=== PATIENT | female | born 1945 | race Caucasian/White ===

== ENCOUNTER → 2016-10-20 | Day surgery (SDC) | payer MEDICARE ==
[~2016-10-20] MED LIST: Acetaminophen TAB* 325 MG PO PRN; Buffered Lidocaine 1% SYR 3ML* 3 ML/SYR SYRINGE INTRADERM ONE; Buffered Lidocaine 1% SYR 3ML* 3 ML/SYR SYRINGE ONE; Cyclopentolate 1% OPTH.SOL* 2 ML BTL ONE; Flurbiprofen 0.03% OPTH.SOL* 2.5 ML BTL ONE; Lidocaine 1% MPF* 2 ML VIAL ONE; Lidocaine 2% PF * 5 ML VIAL ONE; Neomycin/Polymy/Dex OPHTH.OIN* 3.5 GM ONE; Phenylephrine 2.5% OPTH.SOL* 2 ML BTL ONE; Propofol* 10 MG/ML 20 ML BTL IV PUSH ONE; Tetracaine 0.5% OPTH.SOL 4 ML* 1 DROP BTL ONE; Tropicamide 1% OPTH.SOL* BTL ONE; fentaNYL* 50 MCG/ML 2 ML VIAL (100 MCG VIAL) ONE
[2016-10-20 09:29] VITALS: BP 127/57
--- NOTE | 2016-10-20 09:58 | OP ---
DATE OF OPERATION/DATE OF DICTATION: 10/20/2016 - [facility] DATE OF : 1945. SURGEON: Dr. Jean Wayne. RIGGING WORKER: None. ANESTHESIA: Topical with intravenous sedation. PRE-OP DIAGNOSIS: Cataract, right eye. POST-OP DIAGNOSIS: Cataract, right eye. OPERATIVE PROCEDURE: Phacoemulsification and cataract extraction with posterior chamber intraocular lens implant, right eye. COMPLICATIONS: None. BLOOD LOSS: None. DESCRIPTION OF PROCEDURE: The patient was brought to the operating room and received a small amount of intra-venous sedation. A drop of Tetracaine was placed in her right eye. She was prepped and draped in the usual sterile fashion for ophthalmic surgery and attention was directed to the right eye where a speculum was placed. A paracentesis was created at the 11 o'clock position and 0.1 cc of 1 percent preservative-free Lidocaine was injected into the anterior chamber followed by DisCoVisc. The eye was digitally stabilized while a 2.75 mm keratome was used to create a triplanar clear corneal incision at the 9 o'clock position. A continuous curvilinear capsulorrhexis was created with a cystotome and Utrata forceps. BSS on a cannula was used to hydrodissect the lens from the capsule. Phacoemulsification was performed in a divide-and- conquer technique to create four fragments which were removed. Residual cortical material was removed with irrigation and aspiration. DisCoVisc was used to inflate the capsular bag and an SN60AT 19.0 diopter lens was folded and inserted into the capsular bag. DisCoVisc was removed using irrigation and aspiration. BSS on a cannula was used to hydrate the corneal stroma and seal the wound. At the end of the case the pupil was round and the lens was centered. The eye was of normal pressure and the wound was water tight. The speculum was removed and topical Maxitrol ointment was placed on the surface of the eye. The eye was closed, patched and shielded and the patient was sent to the recovery room in stable condition with post operative instructions and follow-up appointment given. [id number] #: [id number] MTDD
== END | disposition home or self-care (01) ==
LOC: OREAST 07:38
PROVIDERS: ATTEND Ophthalmology
DX: H25.11 Age-related nuclear cataract, right eye (principal); I73.00 Raynaud's syndrome without gangrene
CPT/HCPCS: A9270-GY; J2704; J3010; V2632

== ENCOUNTER → 2016-10-27 | Day surgery (SDC) | payer MEDICARE ==
[~2016-10-27] MED LIST changes: -Lidocaine 2% PF * 5 ML VIAL ONE; +Midazolam* 1 MG/ML 2 ML VIAL (2 MG) ONE; -Propofol* 10 MG/ML 20 ML BTL IV PUSH ONE
[2016-10-27 10:15] VITALS: BP 125/77
--- NOTE | 2016-10-27 21:06 | OP ---
DATE OF OPERATION/DATE OF DICTATION: 10/27/16 - [facility] DATE OF : 47 SURGEON: Dr. Jean Wayne. ELEMENTARY INSTRUCTIONAL COACH: None. ANESTHESIOLOGIST: Beni Johnson MD ANESTHESIA: Topical with intravenous sedation. PRE-OP DIAGNOSIS: Cataract, left eye. POST-OP DIAGNOSIS: Cataract, left eye. OPERATIVE PROCEDURE: Phacoemulsification and cataract extraction with posterior chamber intraocular lens implant, left eye. COMPLICATIONS: None. BLOOD LOSS: None. DESCRIPTION OF PROCEDURE: The patient was brought to the operating room and received a small amount of intravenous sedation. A drop of Tetracaine was placed in Ashli's left eye. Ashli was prepped and draped in the usual sterile fashion for ophthalmic surgery and attention was directed to the left eye where a speculum was placed. A paracentesis was created at the 5 o'clock position and 0.1 cc of 1 percent preservative-free Lidocaine was injected into the anterior chamber followed by DisCoVisc. The eye was digitally stabilized while a 2.75 mm keratome was used to create a triplanar clear corneal incision at the 3 o'clock position. A continuous curvilinear capsulorrhexis was created with a cystotome and Utrata forceps. BSS on a cannula was used to hydrodissect the lens from the capsule. Phaco-emulsification was performed in a divide-and- conquer technique to create four fragments which were removed. Residual cortical material was removed with irrigation and aspiration. DisCoVisc was used to inflate the capsular bag and an SN60AT 18 diopter lens was folded and inserted into the capsular bag. DisCoVisc was removed using irrigation and aspiration. BSS on a cannula was used to hydrate the corneal stroma and seal the wound. At the end of the case the pupil was round and the lens was centered. The eye was of normal pressure and the wound was water tight. The speculum was removed and topical Maxitrol ointment was placed on the surface of the eye. The eye was closed, patched and shielded and the patient was sent to the recovery room in stable condition with post operative instructions and follow-up appointment given. [id number] #: [id number] MTDD
== END | disposition home or self-care (01) ==
LOC: OREAST 08:30
PROVIDERS: ATTEND Ophthalmology
DX: H25.12 Age-related nuclear cataract, left eye (principal); D64.9 Anemia, unspecified
CPT/HCPCS: A9270-GY; J2250; J3010; V2632

== ENCOUNTER 2017-04-07 11:46 | Emergency (ER) | payer MEDICARE ==
[2017-04-07 12:09] VITALS: BP 119/59
--- NOTE | 2017-04-07 12:11 | UC ---
Abdominal Pain Female HPI - HPI Summary HPI Summary: 72 YEAR OLD FEMALE PRESENTS WITH COMPLAINS OF FEVER, CHILLS, DIARRHEA AND ABDOMINAL PAIN. - History of Current Complaint Chief Complaint: UCGI Stated Complaint: ABDOMINAL COMPLAINT Time Seen by Provider: 04/07/17 12:08 Allergies/Adverse Reactions: Allergies Allergy/AdvReac Type Severity Reaction Status Date / Time No Known Drug Allergy Allergy none Verified 04/07/17 12:09 adhesives Allergy Intermediate redness, Uncoded 04/07/17 12:09 irritation to skin, itchy PMH/Surg Hx/FS Hx/Imm Hx - Surgical History Surgical History: Yes Surgery Procedure, Year, and Place: hysterectomy, cataract - Social History Alcohol Use: Occasionally Substance Use Type: None Smoking Status (MU): Never Smoked Tobacco Review of Systems Constitutional: Fever, Chills Skin: Negative Eyes: Negative ENT: Negative Respiratory: Negative Cardiovascular: Negative Gastrointestinal: Abdominal Pain, Diarrhea Genitourinary: Negative Motor: Negative Neurovascular: Negative Musculoskeletal: Negative Neurological: Negative Psychological: Negative All Other Systems Reviewed And Are Negative: Yes Physical Exam Triage Information Reviewed: Yes Vital Signs: Initial Vital Signs Temp 36.3 C 04/07/17 12:04 Pulse 68 04/07/17 12:04 Resp 18 04/07/17 12:04 BP 119/59 04/07/17 12:04 Pulse Ox 100 04/07/17 12:04 Eye Exam: Normal ENT Exam: Normal Dental Exam: Normal Neck exam: Normal Neck: Positive: 1 Respiratory Exam: Normal Cardiovascular Exam: Normal Abdominal Exam: Normal Musculoskeletal Exam: Normal Neurological Exam: Normal Psychological Exam: Normal Skin Exam: Normal Abd Pain Female Course/Dx - Differential Dx/Diagnosis Provider Diagnoses: DIARRHEA Discharge - Discharge Plan Condition: Stable Disposition: HOME Patient Education Materials: Acute Diarrhea (ED), Colitis (ED) Referrals: Seb Grey MD [Primary Care Provider] - If Needed
== END 2017-04-07 12:35 | disposition home or self-care (01) ==
LOC: UCEAST 11:46
DX: R19.7 Diarrhea, unspecified (principal); R50.9 Fever, unspecified; R10.9 Unspecified abdominal pain; Z90.710 Acquired absence of both cervix and uterus; Z98.49 Cataract extraction status, unspecified eye
CPT/HCPCS: 99212; G0463

== ENCOUNTER 2018-09-06 16:45 | Inpatient (IN) | payer MEDICARE ==
[2018-09-06] MEDS ORDERED: Morphine VIAL* 4 MG/ML VIAL (1 ml vial) IV ONE ×2 (16:59→17:31)
[2018-09-06] MEDS ORDERED: Ondansetron INJ* 2 MG/ML VIAL IV ONE (17:00)
--- NOTE | 2018-09-06 17:02 | ED ---
Lower Extremity - HPI Summary HPI Summary: 73 year old female with history of hypothyroidism presents with obvious deformity to left ankle. She states that she tripped over the dog. She denies any head injury or loss consciousness. No chest pain or shortness of breath. fall was a mechanical fall. No neck pain. No hip pain. She says she has feels like has pulled muscle of left thigh. She denies any previous fractures to the area. No numbness or tingling. She is not able to placing weight on the area. lives at home alone. - History of Current Complaint Chief Complaint: EDExtremityLower Stated Complaint: LT ANKLE PAIN Time Seen by Provider: 09/06/18 16:55 Pain Intensity: 7 - Allergies/Home Medications Allergies/Adverse Reactions: Allergies Allergy/AdvReac Type Severity Reaction Status Date / Time MS No Known Drug Allergy Allergy none Verified 04/07/17 12:09 [No Known Drug Allergy] adhesives Allergy Intermediate redness, Uncoded 04/07/17 12:09 irritation to skin, itchy Home Medications: Home Medications Levothyroxine TAB* [Synthroid TAB*] 50 mcg PO DAILY 09/06/18 [History Confirmed 09/06/18] PMH/Surg Hx/FS Hx/Imm Hx Endocrine/Hematology History: Reports: Hx Anemia - on and off from childhood Denies: Hx Diabetes, Hx Thyroid Disease Cardiovascular History: Denies: Hx Hypertension Respiratory History: Denies: Hx Asthma, Hx Chronic Obstructive Pulmonary Disease (COPD) GI History: Reports: Hx Gastroesophageal Reflux Disease - controlled with diet, Hx Hiatal Hernia - tiny one Denies: Hx Ulcer Musculoskeletal History: Reports: Hx Arthritis - bilat feet, right worse than feet, 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, Hx Osteoporosis, Other Musculoskeletal History - osteopenia in hip Sensory History: Reports: Hx Cataracts - pending surgery, Hx Contacts or Glasses - glasses Denies: Hx Hearing Aid Opthamlomology History: Reports: Hx Cataracts - pending surgery, Hx Contacts or Glasses - glasses Psychiatric History: Reports: Hx Depression - off meds, doing better - Cancer History Hx Chemotherapy: No Hx Radiation Therapy: No - Surgical History Surgery Procedure, Year, and Place: hysterectomy, cataract Hx Anesthesia Reactions: No Infectious Disease History: No Infectious Disease History: Denies: Hx Clostridium Difficile, Hx Hepatitis, Hx Human Immunodeficiency Virus (HIV), Hx of Known/Suspected MRSA, Hx Shingles, Hx Tuberculosis, Hx Known/ Suspected VRE, Hx Known/Suspected VRSA, History Other Infectious Disease, Traveled Outside the [place] in Last 30 Days - Social History Alcohol Use: Occasionally Substance Use Type: Reports: None Smoking Status (MU): Never Smoked Tobacco Review of Systems Negative: Fever Negative: Chest Pain Negative: Shortness Of Breath Positive: Myalgia - left ankle pain All Other Systems Reviewed And Are Negative: Yes Physical Exam Triage Information Reviewed: Yes Vital Signs On Initial Exam: Initial Vitals Temp Pulse Resp BP Pulse Ox 98.1 F 67 15 193/102 98 09/06/18 16:48 09/06/18 16:48 09/06/18 16:48 09/06/18 16:48 09/06/18 16:48 Vital Signs Reviewed: Yes Appearance: Positive: Well-Appearing Skin: Positive: Warm, Dry Head/Face: Positive: Normal Head/Face Inspection Eyes: Positive: Normal, Conjunctiva Clear ENT: Positive: Pharynx normal Respiratory/Lung Sounds: Positive: Clear to Auscultation, Breath Sounds Present Cardiovascular: Positive: Normal, RRR Musculoskeletal: Positive: Other - deformity to left ankle, good pulses, able to wiggle toes, sensation grossly intact Neurological: Positive: Normal Psychiatric: Positive: Normal Procedures - Splinting left leg Location: left leg Hand-Made Type: fiberglass Splint: posterior walking Pre-Proc Neuro Vasc Exam: normal Post-Proc Neuro Vasc Exam: normal Diagnostics - Vital Signs Vital Signs Temp Pulse Resp BP Pulse Ox 09/06/18 16:48 98.1 F 67 15 193/102 98 - Laboratory Result Diagrams: 09/06/18 18:06 09/06/18 18:06 Lab Statement: Any lab studies that have been ordered have been reviewed, and results considered in the medical decision making process. - Radiology leg Radiology Interpretation Completed By: Radiologist Summary of Radiographic Findings: IMPRESSION: TRIMALLEOLAR FRACTURE DISLOCATION OF THE ANKLE. - EKG No standard instances Cardiac Rate: NL EKG Rhythm: Sinus Rhythm Summary of EKG Findings: sinus arrhythmia Lower Extremity Course/Dx - Course Course Of Treatment: 73 year old female with history of hypothyroidism presents with obvious deformity to left ankle. She states that she tripped over the dog. She denies any head injury or loss consciousness. No chest pain or shortness of breath. fall was a mechanical fall. No neck pain. No hip pain. She says she has feels like has pulled muscle of left thigh. She denies any previous fractures to the area. No numbness or tingling. She is not able to placing weight on the area. On exam has obvious deformity to left ankle. Neurovascularly intact. X-ray shows trimalleolar fracture. dr gonzalez wanted to reduce in ED but patient has history of prolonged anasethesia so dr nair wants case to be done by anasethesia. no bed in OR so performed reduction and splinting bedside. dr Gonzalez performed reduction. assisted in placing posterior and sugar tong splint. patient will be admitted to hospitalist to be cleared for surgery. - Diagnoses Differential Diagnosis/HQI/PQRI: Positive: Contusion, Fracture (Closed), Sprain Provider Diagnoses: Trimalleolar fracture of left ankle Discharge - Sign-Out/Discharge Documenting (check all that apply): Patient Departure - Discharge Plan Condition: Good Disposition: ADMITTED TO [facility] Patient Education Materials: Procedural Sedation (ED) Referrals: Seb Grey MD [Primary Care Provider] - - Billing Disposition and Condition Condition: GOOD Disposition: Admitted to [facility]
[2018-09-06] MEDS ORDERED: KETAMINE HCL* 50 MG/ML 10 ML VIAL IV ONE (18:08)
[2018-09-06 18:13] LABS: ABS Basophils 0 10^3/ul (0-0.2); ABS Eosinophils 0 10^3/ul (0-0.6); ABS Lymphocytes 1.2 10^3/ul (1.0-4.8); ABS Monocytes 0.4 10^3/ul (0-0.8); ABS Neutrophils 3.8 10^3/ul (1.5-7.7); ABS Nucleated RBC 0 10^3/ul; Eosinophil % 0.7 %; Hematocrit 42 % (35-47); Hemoglobin 13.9 g/dl (12.0-16.0); Lymphocyte % 21.5 %; Mean Corpuscular HGB Conc 33 g/dl (31-36); Mean Corpuscular Hemoglobin 30 pg (27-31); Mean Corpuscular Volume 91 fL (80-97); Nucleated Red Blood Cells % 0; Platelet Count 224 10^3/ul (150-450); Red Cell Distribution Width 13 % (10.5-15); White Blood Count 5.4 10^3/ul (3.5-10.8)
[2018-09-06 18:22] LABS: INR 0.9 (0.77-1.02)
--- NOTE | 2018-09-06 18:27 | ED ---
Progress - Progress Note Progress Note: Procedure Sedation Assessment Pt is a higher risk because of previous anesthesia history with prolonged recovery. Operating rooms are unavailable for several hours, anesthesiologists unavailable, and Dr. Malin is concerned about skin integrity and that bone will avulse and that there will be skin necrosis. Will proceed with Ketamine dissociative sedation. Presedation physical exam: HEENT, neck, chest, pulmonary, cardiovascular all within normal limits. Given the emergent need for sedation and emergent reduction of potential loss of limb related to delay, we elected for emergent dissociative sedation for this patient. We could not wait for the operating room or for anesthesiology. Sedation provider: Elías Varela M.D. next Consent: In the procedure/sedation consent obtained by Dr. Malin details: Verify that there were no other contraindications to sedation including allergy or anaphylaxis to anesthetic agents, sleep apnea history, dental appliances. Respiratory therapy was present for the entire sedation period emergency airway equipment was immediately available including suctioning and airway cart. We utilized end-tidal capnography (waveform). 2 L of oxygen was applied via nasal cannula. I monitored the patient throughout the entire sedation, and Anel continued to recover her after she was able to verbalize. She did require a couple of sternal rubs at some points for hypoventilation. this was immediately following the reduction. She tolerated the sedation well. Course/Dx - Diagnoses Provider Diagnoses: Trimalleolar fracture of left ankle Discharge - Sign-Out/Discharge Documenting (check all that apply): Patient Departure - Discharge Plan Condition: Good Disposition: ADMITTED TO [facility] Patient Education Materials: Procedural Sedation (ED) Referrals: Seb Grey MD [Primary Care Provider] - - Billing Disposition and Condition Condition: GOOD Disposition: Admitted to [facility] - Attestation Statements Document Initiated by Scribe: Yes Documenting Scribe: Betsy Dwyer Provider For Whom Udayibjonathan is Documenting (Include Credential): Elías Varela MD Scribe Attestation: Betsy Nuñez scribed for Elías Varela MD on 09/06/18 at 1900. Scribe Documentation Reviewed: Yes Provider Attestation: The documentation as recorded by the Betsy liang accurately reflects the service I personally performed and the decisions made by , Elías Varela MD Status of Scribe Document: Viewed
[2018-09-06] MEDS ORDERED: Albuterol/Ipratropium NEB.SOL* Albuterol 2.5 MG/Ipratropium 0.5 MG 3 ML INH PRN (19:32)
[2018-09-06] MEDS ORDERED: Ondansetron INJ* 2 MG/ML VIAL IV PRN (19:32)
[2018-09-06] MEDS ORDERED: Acetaminophen TAB* 325 MG PO PRN (19:32)
--- NOTE | 2018-09-06 19:56 | ADMNOTE ---
Subjective Date of Service: 09/06/18 Interval History: code status full this is admission h/p hpi this is a 73 yr old wf with hx of possible osteoporosis presented to er after an accident that she landed on the floor and twisted her ankle. pt was walking her dog and saw her neighbor's dog was rushing over the fence. she was trying to avoid possible knock-down by that dog and was not sure how she fell in a spilt second. pt did not have and prodrome of any chest pain sob or other cardiac equivalent symptoms. pt had cast placed from er on her left ankle while await for ortho official eval in am. 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 ( all benign pathology ) prob vit d def osteoporosis after ammonia still operator surgery was on estrogen therapy from [id number] was on fosamax 7 months ---> pt decided not to take this due to " keep forgetting to take the med on weekend " hx of hypoglossal cyst removal 1985 hx of b/l cataract extraction 2 yrs ago s/p basal cell skin ca excision 2010 social no cig will consume 4-5 drinks per week 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 Review of Systems - Measurements Intake and Output: Intake and Output Last 24 Hours 09/04/18 09/05/18 09/06/18 09/07/18 06:59 06:59 06:59 06:59 Weight 145 lb - Review of Systems General Comments: pertinent as per hpi Objective Active Medications: Acetaminophen (Tylenol Tab*) 650 mg PO Q6H PRN PRN Reason: FEVER/PAIN Albuterol/Ipratropium (Duoneb (Albuterol 2.5 Mg/Ipratropium 0.5 Mg)) 1 neb INH [id number] AWAKE PRN PRN Reason: sob/wheexing Docusate Sodium (Colace Cap*) 100 mg PO BID BIANKA Heparin Sodium (Porcine) (Heparin Vial(*)) 5,000 units SUBCUT Q8HR BIANKA Sodium Chloride (Ns 0.9% 1000 Ml*) 1,000 mls @ 100 mls/hr IV PER RATE BIANKA Ondansetron HCl (Zofran Inj*) 4 mg IV Q8H PRN PRN Reason: NAUSEA/VOMITING Tramadol HCl (Ultram*) 25 mg PO Q6H PRN PRN Reason: PAIN Vital Signs - 8 hr 09/06/18 09/06/18 09/06/18 16:48 16:51 17:00 Temperature 98.1 F Pulse Rate 67 63 70 Respiratory 15 16 14 Rate Blood Pressure 193/102 193/102 (mmHg) O2 Sat by Pulse 98 100 98 Oximetry 09/06/18 09/06/18 09/06/18 17:06 17:21 17:37 Temperature Pulse Rate 70 Respiratory 15 13 16 Rate Blood Pressure 179/92 (mmHg) O2 Sat by Pulse 97 Oximetry 09/06/18 09/06/18 09/06/18 17:51 18:00 18:21 Temperature Pulse Rate 74 76 77 Respiratory Rate Blood Pressure 179/87 187/88 (mmHg) O2 Sat by Pulse 95 95 100 Oximetry 09/06/18 09/06/18 09/06/18 18:27 18:30 18:33 Temperature Pulse Rate 119 119 104 Respiratory 24 Rate Blood Pressure 223/115 212/100 (mmHg) O2 Sat by Pulse 93 93 93 Oximetry 09/06/18 09/06/18 18:36 18:41 Temperature Pulse Rate 103 88 Respiratory Rate Blood Pressure 193/98 189/101 (mmHg) O2 Sat by Pulse 98 99 Oximetry Result Diagrams: 09/06/18 18:06 09/06/18 18:06 Assess/Plan/Problems-Billing Assessment:
--- NOTE | 2018-09-06 21:18 | CONS ---
EMERGENCY ROOM CONSULTATION REPORT: DATE OF CONSULTATION: 09/06/18 CHIEF COMPLAINT: Left ankle pain. HISTORY OF PRESENT ILLNESS: Mrs. Gayle is a 73-year-old female who was nearly attacked by a dog while at walking her dog earlier today. She reports she is unsure how she fell, but immediately had 10/10 pain and deformity of the left ankle. She was unable to stand or move the ankle. She was brought to [facility] by an ambulance and found to have fracture dislocation of the left ankle. I am consulted for orthopedic fracture care as the emergency room staff is uncomfortable with the reduction. The patient reports 8/10 pain in the left ankle. Any attempt to move the ankle is excruciating for her. She denies any prior trauma to this ankle. PAST MEDICAL HISTORY: Hypothyroidism. PAST SURGICAL HISTORY: Oophorectomy and hysterectomy, thyroglossal cyst excision. HOME MEDICATIONS: Synthroid 50 mcg p.o. daily. ALLERGIES: ADHESIVES, redness of the skin, otherwise unknown or negative. FAMILY HISTORY: Negative. SOCIAL HISTORY: The patient lives alone. Occasional alcohol use. No tobacco use. Normally, an independent ambulator. REVIEW OF SYSTEMS: Fourteen systems were reviewed with the patient today, positive for the left ankle pain, recent fall. Negative fever, chills, chest pain, shortness of breath, nausea, vomiting, headache or dizziness. Otherwise, the patient reports review of systems is negative or non-relevant. PHYSICAL EXAMINATION: Vitals: Temperature 98.1, pulse 67, blood pressure 193/ 102. General: The patient is a well-nourished female, in no apparent distress. Alert and oriented x3, pleasant mood and appropriate affect. Gait: The patient's gait is not assessed. Bilateral Upper Extremities: The patient's skin is intact. No bony tenderness to palpation. Forward flexion at the shoulders with no instability. 5/5 structured cabling technician strength. 2+ palpable radial pulses. Right lower extremity: The patient's skin is intact. No bony tenderness to palpation. She can flex at the hip and knee without pain distally, neurovascularly intact. Left lower extremity: The patient's skin is intact. She has obvious deformity with fracture dislocation at the left ankle. The bone is visible through the medial skin and the skin is at risk. This skin is changing color. Effusion is increasing rapidly. She does flex and extend the toe. She has a 2+ palpable DP pulse. DIAGNOSTIC STUDIES/LAB DATA: Hematocrit 42 and platelets 224, otherwise I have no labs at this time. EKG is abnormal with a sinus arrhythmia. Radiographs: Plain x-rays show a trimalleolar fracture dislocation with significant displacement of the left ankle. ASSESSMENT AND PLAN: Mrs. Gayle is a 73-year-old female, status post fall with a left closed fracture dislocation of the left ankle. This is likely a trimalleolar fracture. The emergency room staff was uncomfortable with the reduction, therefore, I was called to see her in the emergency room. Although the patient does have an anesthesia history that makes the emergency room less comfortable with the sedation process, we have no available operating room. I have asked Dr. Varela to proceed with any kind of sedation because I do feel that this skin is at risk. I feel that an urgent reduction of this fracture dislocation is necessary in order to avoid any skin breakdown. Dr. Varela has graciously agreed to perform a conscious sedation in the emergency room, so I can reduce this fracture dislocation. Plan will be for closed reduction under anesthesia. I will then get a CT scan. The patient lives alone. She will likely be admitted to the hospitalist. She will be medically optimized then perhaps further cardiac workup because of abnormal EKG. Once she is cleared for surgery, Orthopedics will proceed with open reduction and internal fixation. [id number]/[facility] #: [id number] MTDD
[2018-09-06] MEDS: NS 0.9% 1000 ML* 1,000 ML IV SCH (21:19)
[2018-09-06 22:05] LABS: Urine Appearance Cloudy; Urine Blood Negative (Negative); Urine Color Yellow; Urine Ketones Negative (Negative); Urine Protein Negative (Negative); Urine Specific Gravity 1.014 (1.010-1.030); Urine Urobilinogen Negative (Negative)
[2018-09-06] MEDS: Docusate CAP* 100 MG PO SCH (22:24)
[2018-09-06] MEDS: Heparin VIAL(*) 5000 UNITS/ML VIAL (FIVE THOUSAND) SUBCUT SCH (22:26)
[2018-09-06] MEDS ORDERED: Melatonin 3 MG TAB PO PRN (23:09)
--- NOTE | 2018-09-07 00:05 | PRO ---
DATE OF PROCEDURE: 09/06/18 - ROOM #347 ATTENDING SURGEON: Lora Malin MD ANESTHESIOLOGIST: Dr. Elías Varela. ANESTHESIA: Conscious sedation to include ketamine. PRE-PROCEDURE DIAGNOSIS: Closed left ankle trimalleolar fracture dislocation. POST-PROCEDURE DIAGNOSIS: Closed left ankle trimalleolar fracture dislocation. PROCEDURE PERFORMED: Closed reduction under anesthesia of the left ankle trimalleolar fracture dislocation. COMPLICATIONS: None. BRIEF HISTORY/INDICATIONS: Ms. Gayle is a 73-year-old female who had a fall and sustained a left closed trimalleolar ankle fracture dislocation. She was brought to [facility] and I was consulted for fracture reduction. In the emergency room, she had skin at risk medially with bone that was giving a large amount of pressure along the medial skin. I felt that we should urgently reduce the fracture dislocation, and emergency room staff agreed to help me proceed. Informed consent was obtained from the patient. This was signed and placed in the chart. She understood the risks of the procedure included, but were not limited to, bleeding, infection, damage to nearby structures, failure to obtain a reduction, need for further procedure or surgery, anesthesia risk, stroke, heart attack, blood clot, and . She wished to proceed. DESCRIPTION OF PROCEDURE: The patient signed the consent form and the risks were discussed with her at the bedside. Consent was placed in the chart. A pre - procedure time-out was made to correctly identify the patient's side, site, and procedure. Dr. Varela did administer IV ketamine. A gentle reduction maneuver was performed and the fracture dislocation alignment was much improved. A well-padded posterior U-plaster splint was then applied while I held the reduction in place. AP and lateral portable views were obtained to ensure a satisfactory reduction. A satisfactory reduction had been obtained and was documented. The patient's anesthesia was reversed without difficulty. Plan will be for the patient to be admitted to the hospitalist group and medically optimized for further surgery to fix the ankle trimalleolar fracture. She should have the left lower extremity elevated with ice. [id number]/CPS #: [id number] [facility]
[2018-09-07] MEDS: Heparin VIAL(*) 5000 UNITS/ML VIAL (FIVE THOUSAND) SUBCUT SCH ×3 (06:03→23:50)
[2018-09-07 06:53] LABS: ABS Basophils 0 10^3/ul (0-0.2); ABS Eosinophils 0.1 10^3/ul (0-0.6); ABS Lymphocytes 1.7 10^3/ul (1.0-4.8); ABS Monocytes 0.4 10^3/ul (0-0.8); ABS Neutrophils 2.9 10^3/ul (1.5-7.7); ABS Nucleated RBC 0 10^3/ul; Hematocrit 35 % (35-47); Hemoglobin 11.8 g/dl (12.0-16.0); Lymphocyte % 32.9 %; Mean Corpuscular HGB Conc 34 g/dl (31-36); Mean Corpuscular Hemoglobin 30 pg (27-31); Mean Corpuscular Volume 90 fL (80-97); Mean Platelet Volume 9.2 fL (7.4-10.4); Nucleated Red Blood Cells % 0.1; Platelet Count 187 10^3/ul (150-450); Red Blood Count 3.91 10^6/ul (4.00-5.40); Red Cell Distribution Width 13 % (10.5-15); White Blood Count 5.1 10^3/ul (3.5-10.8)
[2018-09-07 07:06] LABS: INR 0.96 (0.77-1.02)
[2018-09-07 07:21] LABS: EGFR Non-African American 94.6 (>60)
[2018-09-07] MEDS: Docusate CAP* 100 MG PO SCH ×2 (07:45→20:40)
[2018-09-07] MEDS: NS 0.9% 1000 ML* 1,000 ML IV SCH (07:53)
[2018-09-07] MEDS: Famotidine IV* 10 MG/ML 2 ML (20 mg) IVPB PRN (09:07)
[2018-09-07] MEDS: traMADol TAB* 50 MG PO PRN ×2 (11:03→18:35)
--- NOTE | 2018-09-07 13:07 | PN ---
Progress Note - Progress Note Date of Service: 09/07/18 SOAP: Subjective: [] Patient seen and examined at bedside. She is anxious as she has been unable to contact her family or secure care for her dog due to fall outside of her home without her cellphone. Left ankle pain is well controlled at rest in bed. Denies CP, SOB, dizziness, nausea. Objective: []General: Well appearing, NAD LLE: Left ankle splint CDI. Able to wiggle exposed toes, sensation intact and capillary refill less than two seconds of exposed toes. Proximal to splint there is no erythema or skin breakdown at splint edges. Right calf supple and nontender Assessment: [] Left ankle triamalolar fracture s/p closed reduction, requires ORIF Plan: [] NWB LLE LLE to be elevated on 4 pillows, ice Nursing aware of and working to assist in needs, social work consult placed, needs assistance contacting family/ care for pets. Anticipate need for rehab at D/C NPO and hold anticoag at midnight for ORIF left ankle tomorrow at approx [address] Tello Medical optimization today. Repeat EKG ordered cbc, bmp, inr at 0600 09/08. Type and screen done at admission Vital Signs Temp 98.2 F 09/07/18 11:17 Pulse 67 09/07/18 11:17 Resp 16 09/07/18 11:17 BP 156/81 09/07/18 11:17 Pulse Ox 94 09/07/18 11:17 Intake & Output 09/06/18 09/07/18 09/07/18 18:59 06:59 18:59 Intake Total 0 990 Output Total 400 100 Balance -400 890 Weight 145 lb 145 lb Intake: IV Fluids 990 NS (0.9%) 990 Oral 0 Output: Urine 400 100 Laboratory Last Values WBC 5.1 10^3/ul (3.5-10.8) 09/07/18 06:46 RBC 3.91 10^6/ul (4.00-5.40) L 09/07/18 06:46 Hgb 11.8 g/dl (12.0-16.0) L 09/07/18 06:46 Hct 35 % (35-47) 09/07/18 06:46 MCV 90 fL (80-97) 09/07/18 06:46 MCH 30 pg (27-31) 09/07/18 06:46 MCHC 34 g/dl (31-36) 09/07/18 06:46 RDW 13 % (10.5-15) 09/07/18 06:46 Plt Count 187 10^3/ul (150-450) 09/07/18 06:46 MPV 9.2 fL (7.4-10.4) 09/07/18 06:46 Neut % (Auto) 56.9 % 09/07/18 06:46 Lymph % (Auto) 32.9 % 09/07/18 06:46 [place] % (Auto) 8.6 % 09/07/18 06:46 Eos % (Auto) 1.0 % 09/07/18 06:46 Baso % (Auto) 0.6 % 09/07/18 06:46 Absolute Neuts (auto) 2.9 10^3/ul (1.5-7.7) 09/07/18 06:46 Absolute Lymphs (auto) 1.7 10^3/ul (1.0-4.8) 09/07/18 06:46 Absolute Monos (auto) 0.4 10^3/ul (0-0.8) 09/07/18 06:46 Absolute Eos (auto) 0.1 10^3/ul (0-0.6) 09/07/18 06:46 Absolute Basos (auto) 0 10^3/ul (0-0.2) 09/07/18 06:46 Absolute Nucleated RBC 0 10^3/ul 09/07/18 06:46 Nucleated RBC % 0.1 09/07/18 06:46 INR (Anticoag Therapy) 0.96 (0.77-1.02) 09/07/18 06:46 APTT 27.8 seconds (26.0-36.3) 09/06/18 18:06 Sodium 136 mmol/L (135-145) 09/07/18 06:46 Potassium 3.9 mmol/L (3.5-5.0) 09/07/18 06:46 Chloride 105 mmol/L (101-111) 09/07/18 06:46 Carbon Dioxide 26 mmol/L (22-32) 09/07/18 06:46 Anion Gap 5 mmol/L (2-11) 09/07/18 06:46 BUN 14 mg/dL (6-24) 09/07/18 06:46 Creatinine 0.62 mg/dL (0.51-0.95) 09/07/18 06:46 Est GFR ( Amer) 114.5 (>60) 09/07/18 06:46 Est GFR (Non-Af Amer) 94.6 (>60) 09/07/18 06:46 BUN/Creatinine Ratio 22.6 (8-20) H 09/07/18 06:46 Glucose 111 mg/dL (70-100) H 09/07/18 06:46 Lactic Acid 1.0 mmol/L (0.5-2.0) 09/06/18 18:06 Calcium 8.7 mg/dL (8.6-10.3) 09/07/18 06:46 Total Bilirubin 0.30 mg/dL (0.2-1.0) 09/07/18 05:38 Direct Bilirubin 0.00 mg/dL (0.03-0.18) L 09/07/18 05:38 Indirect Bilirubin Oil Process [place] 09/07/18 05:38 AST 28 U/L (13-39) 09/07/18 05:38 ALT 39 U/L (7-52) 09/07/18 05:38 Alkaline Phosphatase 62 U/L (34-104) 09/07/18 05:38 Troponin I 0.00 ng/mL (<0.04) 09/06/18 18:06 Total Protein 6.0 g/dL (6.4-8.9) L 09/07/18 05:38 Albumin 3.5 g/dL (3.2-5.2) 09/07/18 05:38 Globulin 2.5 g/dL (2-4) 09/07/18 05:38 Albumin/Globulin Ratio 1.4 (1-3) 09/07/18 05:38 Triglycerides 93 mg/dL 09/07/18 05:38 Cholesterol 207 mg/dL 09/07/18 05:38 LDL Cholesterol 125 mg/dL 09/07/18 05:38 HDL Cholesterol 63.3 mg/dL 09/07/18 05:38 TSH 0.70 mcIU/mL (0.34-5.60) 09/07/18 06:46 Urine Color Yellow 09/06/18 21:55 Urine Appearance Cloudy 09/06/18 21:55 Urine pH 8.0 (5-9) 09/06/18 21:55 Ur Specific [place] 1.014 (1.010-1.030) 09/06/18 21:55 Urine Protein Negative (Negative) 09/06/18 21:55 Urine Ketones Negative (Negative) 09/06/18 21:55 Urine Blood Negative (Negative) 09/06/18 21:55 Urine Nitrate Negative (Negative) 09/06/18 21:55 Urine Bilirubin Negative (Negative) 09/06/18 21:55 Urine Urobilinogen Negative (Negative) 09/06/18 21:55 Ur Leukocyte Esterase Negative (Negative) 09/06/18 21:55 Urine Glucose Negative (Negative) 09/06/18 21:55 Blood Type A Positive 09/06/18 18:06 Antibody Screen Negative 09/06/18 18:06
--- NOTE | 2018-09-07 16:09 | PN ---
Subjective Date of Service: 09/07/18 Interval History: Ms. Boston is feeling ok today. She reports that she has no pain while at rest , but has pain with movement of the left foot. She is anxious about surgery tomorrow and is concerned about her recovery as she is typically quite active. She denies CP, SOB, N/V/D, dizziness. Somewhat poor appetite. Hesitant to eat as she does not want to have to use a bedpan. Reports heartburn which is normal for her. Family History: Unchanged from Admission Social History: Unchanged from Admission Past Medical History: Unchanged from Admission Objective Active Medications: Acetaminophen (Tylenol Tab*) 650 mg PO Q6H PRN FEVER/PAIN Albuterol/Ipratropium (Duoneb (Albuterol 2.5 Mg/Ipratropium 0.5 Mg)) 1 neb INH [id number] AWAKE PRN sob/wheexing Docusate Sodium (Colace Cap*) 100 mg PO BID BIANKA Famotidine (Pepcid Iv*) 20 mg IVPB BID PRN DYSPEPSIA Heparin Sodium (Porcine) (Heparin Vial(*)) 5,000 units SUBCUT Q8HR BIANKA Sodium Chloride (Ns 0.9% 1000 Ml*) 1,000 mls @ 100 mls/hr IV PER RATE BIANKA Melatonin (Melatonin) 3 mg PO BEDTIME PRN; Protocol SLEEP Ondansetron HCl (Zofran Inj*) 4 mg IV Q8H PRN NAUSEA/VOMITING Oxycodone HCl (Roxycodone Tab*) 5 mg PO Q4H PRN PAIN - SEVERE Tramadol HCl (Ultram*) 25 mg PO Q6H PRN PAIN Vital Signs - 8 hr 09/07/18 09/07/18 09/07/18 11:03 11:17 15:41 Temperature 98.2 F 98.5 F Pulse Rate 67 75 Respiratory 16 16 16 Rate Blood Pressure 156/81 133/61 (mmHg) O2 Sat by Pulse 94 96 Oximetry Oxygen Devices in Use Now: None Appearance: Elderly woman laying in bed in NAD Eyes: No Scleral Icterus Ears/Nose/Mouth/Throat: Mucous Membranes Moist Neck: NL Appearance and Movements; NL JVP, Trachea Midline Respiratory: Symmetrical Chest Expansion and Respiratory Effort, Clear to Auscultation Cardiovascular: NL Sounds; No Murmurs; No JVD, RRR Abdominal: NL Sounds; No Tenderness; No Distention Extremities: No Edema Skin: No Rash or Ulcers, - - Splint in place to left ankle Neurological: Alert and Oriented x 3, NL Sensation Lines/Tubes/Other Access: Clean, Dry and Intact Peripheral IV Nutrition: Taking PO's Result Diagrams: 09/07/18 06:46 09/07/18 06:46 Assess/Plan/Problems-Billing Assessment: Ms. Boston is a 73yo with PMH of hypothyroidism and osteoporosis who presented to the ED after sustaining a mechanical fall and was found to have a left ankle fracture requiring surgical intervention. - Patient Problems (1) Trimalleolar fracture of left ankle Current Visit: Yes Status: Acute Code(s): S82.852A - DISPLACED TRIMALLEOLAR FRACTURE OF LEFT LOWER LEG, INIT SNOMED Code(s): 750074119 Comment: - 2/2 mechanical fall - Xray shows fracture and dislocation - Reduced 09/06 under conscious sedation - Plan for ORIF tomorrow with Ferdinand - According to the Revised Cardiac Risk Index, the patient has a score of 0 points indicating a 0.4% risk of major cardiac event; the patients METS score is 9.89; EKG personally reviewed shows NSR with a rate of 66, QTc 435, no ischemic changes; she does not require any further cardiac workup and has been medically optimized for left ankle ORIF with Dr. Streeter tomorrow (2) Hypothyroidism Current Visit: Yes Status: Acute Code(s): E03.9 - HYPOTHYROIDISM, UNSPECIFIED SNOMED Code(s): 99503499 Comment: - Continue levothyroxine (3) DVT prophylaxis Current Visit: Yes Status: Acute Code(s): NVK1014 - SNOMED Code(s): 074722841 Comment: - Heparin SQ (4) Full code status Current Visit: Yes Status: Acute Code(s): Z78.9 - OTHER SPECIFIED HEALTH STATUS SNOMED Code(s): 843028216 Status and Disposition: Observation. Surgery tomorrow. Anticipate d/c home or to [facility] when medically stable. Attending: Mary Gómez
[2018-09-08] MEDS: Levothyroxine TAB* 50 MCG TAB PO SCH (05:16)
[2018-09-08] MEDS: NS 0.9% 1000 ML* 1,000 ML IV SCH (05:18)
[2018-09-08 05:47] LABS: ABS Basophils 0 10^3/ul (0-0.2); ABS Eosinophils 0.1 10^3/ul (0-0.6); ABS Lymphocytes 1.4 10^3/ul (1.0-4.8); ABS Monocytes 0.4 10^3/ul (0-0.8); ABS Neutrophils 2.9 10^3/ul (1.5-7.7); ABS Nucleated RBC 0 10^3/ul; Eosinophil % 1.7 %; Hematocrit 36 % (35-47); Hemoglobin 12.3 g/dl (12.0-16.0); Lymphocyte % 29.2 %; Mean Corpuscular HGB Conc 34 g/dl (31-36); Mean Corpuscular Hemoglobin 31 pg (27-31); Mean Corpuscular Volume 90 fL (80-97); Mean Platelet Volume 9.3 fL (7.4-10.4); Nucleated Red Blood Cells % 0.1; Platelet Count 181 10^3/ul (150-450); Red Blood Count 4.02 10^6/ul (4.00-5.40); Red Cell Distribution Width 13 % (10.5-15); White Blood Count 4.8 10^3/ul (3.5-10.8)
[2018-09-08 05:52] LABS: INR 0.94 (0.77-1.02)
[2018-09-08 06:02] LABS: EGFR Non-African American 115.9 (>60)
[2018-09-08] MEDS: Cholecalciferol TAB* 1000 UNITS PO SCH (08:20)
[2018-09-08] MEDS: Docusate CAP* 100 MG PO SCH ×2 (08:20→20:32)
[2018-09-08] MEDS: Famotidine IV* 10 MG/ML 2 ML (20 mg) IVPB PRN (10:59)
--- NOTE | 2018-09-08 11:13 | PN ---
Subjective Date of Service: 09/08/18 Interval History: Ms. Boston is feeling emotional today. She reports that she typically gets this way when she is without food. She is also anxious about surgery. She is quite uncomfortable laying in bed and is frustrated about not being able to move , though understands that she cannot bear weight on the LLE. Pain well managed. She had an uneventful night. Denies CP, SOB, N/V. Reports heartburn. Family History: Unchanged from Admission Social History: Unchanged from Admission Past Medical History: Unchanged from Admission Objective Active Medications: Acetaminophen (Tylenol Tab*) 650 mg PO Q6H PRN FEVER/PAIN Albuterol/Ipratropium (Duoneb (Albuterol 2.5 Mg/Ipratropium 0.5 Mg)) 1 neb INH [id number] AWAKE PRN sob/wheexing Cholecalciferol (Vitamin D Tab*) 2,000 units PO DAILY BIANKA Docusate Sodium (Colace Cap*) 100 mg PO BID BIANKA Famotidine (Pepcid Iv*) 20 mg IVPB BID PRN DYSPEPSIA Sodium Chloride (Ns 0.9% 1000 Ml*) 1,000 mls @ 100 mls/hr IV PER RATE BIANKA Levothyroxine Sodium (Synthroid Tab*) 50 mcg PO DAILY@0600 BIANKA Melatonin (Melatonin) 3 mg PO BEDTIME PRN; Protocol SLEEP Ondansetron HCl (Zofran Inj*) 4 mg IV Q8H PRN NAUSEA/VOMITING Oxycodone HCl (Roxycodone Tab*) 5 mg PO Q4H PRN PAIN - SEVERE Tramadol HCl (Ultram*) 25 mg PO Q6H PRN PAIN Vital Signs - 8 hr 09/08/18 09/08/18 09/08/18 03:24 04:36 07:32 Temperature 98.4 F 98.6 F Pulse Rate 76 69 Respiratory 16 16 16 Rate Blood Pressure 151/71 152/76 (mmHg) O2 Sat by Pulse 94 95 Oximetry Oxygen Devices in Use Now: None Appearance: Elderly female laying in bed in NAD Eyes: No Scleral Icterus Ears/Nose/Mouth/Throat: Mucous Membranes Moist Neck: NL Appearance and Movements; NL JVP, Trachea Midline Respiratory: Symmetrical Chest Expansion and Respiratory Effort, Clear to Auscultation Cardiovascular: NL Sounds; No Murmurs; No JVD, RRR Abdominal: NL Sounds; No Tenderness; No Distention Skin: No Rash or Ulcers, - - Splint to left ankle Neurological: Alert and Oriented x 3, NL Sensation Lines/Tubes/Other Access: Clean, Dry and Intact Peripheral IV Result Diagrams: 09/08/18 05:25 09/08/18 05:25 Assess/Plan/Problems-Billing Assessment: Ms. Boston is a 73yo with PMH of hypothyroidism and osteoporosis who presented to the ED after sustaining a mechanical fall and was found to have a left ankle fracture requiring surgical intervention. - Patient Problems (1) Trimalleolar fracture of left ankle Current Visit: Yes Status: Acute Code(s): S82.852A - DISPLACED TRIMALLEOLAR FRACTURE OF LEFT LOWER LEG, INIT SNOMED Code(s): 085349081 Comment: - 2/2 mechanical fall - Xray shows fracture and dislocation - Reduced 09/06 under conscious sedation - Plan for ORIF today with Ferdinand; medically optimized yesterday (2) GERD (gastroesophageal reflux disease) Current Visit: Yes Status: Acute Code(s): K21.9 - GASTRO-ESOPHAGEAL REFLUX DISEASE WITHOUT ESOPHAGITIS SNOMED Code(s): 184479886 Comment: - Continue famotidine IV today - Will add omeprazole starting tomorrow (3) Hypothyroidism Current Visit: Yes Status: Acute Code(s): E03.9 - HYPOTHYROIDISM, UNSPECIFIED SNOMED Code(s): 10404580 Comment: - Continue levothyroxine (4) DVT prophylaxis Current Visit: Yes Status: Acute Code(s): TGC4855 - SNOMED Code(s): 440810804 Comment: - Heparin SQ (5) Full code status Current Visit: Yes Status: Acute Code(s): Z78.9 - OTHER SPECIFIED HEALTH STATUS SNOMED Code(s): 515594220 Status and Disposition: Observation. Surgery today. Anticipate d/c home or to [facility] when medically stable. Attending: Mary Gómez
[2018-09-08] MEDS ORDERED: fentaNYL* 50 MCG/ML 2 ML VIAL (100 MCG VIAL) ONE ×3 (14:17→18:06)
[2018-09-08] MEDS ORDERED: Midazolam* 1 MG/ML 2 ML VIAL (2 MG) ONE (14:18)
[2018-09-08] MEDS ORDERED: ceFAZolin 2 GM PREMIX in ORs 2 GM/50 ML BAG IVPB ONE (14:51)
[2018-09-08] MEDS ORDERED: Bupivacaine 0.5% PF 10 ML VIAL INJ ONE (14:52)
[2018-09-08] MEDS ORDERED: Ondansetron INJ* 2 MG/ML VIAL ONE (15:49)
[2018-09-08] MEDS ORDERED: Lidocaine 2% PF * 5 ML VIAL ONE (15:49)
[2018-09-08] MEDS ORDERED: Dexamethasone IV* 4 MG/ML 1 ML (4 MG) ONE (15:49)
[2018-09-08] MEDS ORDERED: Propofol* 10 MG/ML 20 ML BTL ONE (15:49)
[2018-09-08] MEDS ORDERED: EPHEDrine (Pressors)* 50 MG/ML VIAL ONE (16:07)
[2018-09-08] MEDS ORDERED: HYDROmorphone INJ1* 1 MG/ML SYRINGE IV PRN (16:08)
[2018-09-08] MEDS ORDERED: oxyCODONE/Acetamin 5/325 MG* TAB PO PRN (16:08)
[2018-09-08] MEDS ORDERED: Acetaminophen TAB* 325 MG PO PRN (16:08)
[2018-09-08] MEDS ORDERED: Metoclopramide IV* 5 MG/ML 2 ML VIAL IV PRN (16:08)
[2018-09-08] MEDS ORDERED: fentaNYL* 50 MCG/ML 2 ML VIAL (100 MCG VIAL) IV PRN (16:08)
[2018-09-08] MEDS ORDERED: Ketorolac INJ* 30 MG/ML 1 ML VIAL IV PRN (16:08)
[2018-09-08] MEDS ORDERED: Naloxone* 0.4 MG/ML 1 ML VIAL IV PRN (16:08)
[2018-09-08] MEDS ORDERED: PROCHLORPERAZINE INJ 5 MG/ML 2 ML VIAL IV PRN (16:08)
[2018-09-08] MEDS ORDERED: Esmolol* 10 MG/ML 10 ML (100 mg) ONE (17:17)
[2018-09-08] MEDS ORDERED: hydrALAZINE IV* 20 MG/ML VIAL ONE (17:20)
--- NOTE | 2018-09-08 17:38 | OP ---
Operative Report - Blank - Operative Report Date of Operation: 09/08/18 Note: PATIENT: Ashli Gayle DATE OF : 1945 DATE OF SURGERY: 09/08/2018 SURGEON: Richard Tello MD COATER HAND: SONAL Anderson , whos assistance was necessary for positioning, retraction, help with instrumentation, and closure. ANESTHESIOLOGIST: Araceli Boyce MD PREOPERATIVE DIAGNOSIS: Left trimalleolar ankle fracture POSTOPERATIVE DIAGNOSIS: Left trimalleolar ankle fracture and lateral ankle ligament rupture. OPERATION: 1. Left trimalleolar ankle fracture open reduction and internal fixation 2. Left lateral ankle ligament reconstruction ANESTHESIA: GETA IMPLANTS: Arthrex ankle fracture set plate and screws TOURNIQUET TIME: Less than 2 hours with a well-padded thigh tourniquet at 250mmHg SPECIMENS: none ESTIMATED BLOOD LOSS: minimal COMPLICATIONS: none STATUS: Stable from the operating room to the recovery room and then home. INDICATIONS FOR PROCEDURE: Ashli sustained a left ankle fracture dislocation. Both operative and non operative treatment alternatives were reviewed. Further, the nature and risks of surgery were reviewed in careful detail, in the office as well as the pre- operative holding area. Our discussions regarding the risks of surgery included , but were not limited to, infection, wound problems, nerve injury, neuroma, RSD , persistent symptoms, blood clot, nonunion, malunion, post-traumatic arthritis , hardware failure, failure of the surgery, and even the remote chance of catastrophic complication, including loss of limb. DESCRIPTION OF PROCEDURE: The patient was seen in the preoperative holding unit and informed written consent was obtained. The appropriate extremity was marked. The patient was then brought to the operating room and carefully positioned on the operating room table. Anesthesia was induced. All bony prominences were padded with great care. A well-padded thigh tourniquet was placed. A chlorhexidine based pre- scrub was performed followed by a chloraprep prep and drape in standard sterile fashion. A surgical safety pause was then conducted in which we confirmed the appropriate patient, extremity, planned procedure, availability of equipment, indication and administration of prophylactic antibiotics, and DVT prophylaxis in the form of a compression boot on the non-surgical extremity. I began with Esmarch exsanguination of the limb and inflated the tourniquet. I then utilized a laterally based incision overlying the posterior aspect of the distal fibula. Great care was taken to protect the superficial peroneal nerve, which was not visualized within the field of view. I dissected down through the soft tissue layers to expose the distal fibula and SPR. I then exposed the distal fibula fractures. Fracture hematoma was removed. There was comminution of the distal fibula. Additionally, the lateral ankle ligaments were completely torn, so the lateral aspect of the talus was directly visualized. I gained a reduction utilizing a pointed reduction clamps and then held this provisionally with K-wires. I placed an arthrex anatomic fibula plate laterally and then confirmed the reduction and the position of the plate fluoroscopically. I placed screws to hold the plate to the bone. I also placed a posterior to anterior lag screw across the distal 2 fracture fragments. The provisional fixation was removed and then I again confirmed fluoroscopically the appropriate position of the plate and screw lengths. I then found the plane between the peroneals and flexor hallucis longus and dissected into this plane. I exposed the posterior malleolus. I reduced the fracture and this was held provisionally with a large reduction clamp and K wires. I then placed 2 guidewires for 4.0 mm cannulated screws. These were confirmed fluoroscopically, as well as the reduction of the posterior malleolus. The guidewires were overdrilled and 2 posterior to anterior 4.0 mm cannulated screws, one with a washer, were placed and held the posterior malleolus well reduced. Direct visualization of the syndesmosis showed gross tearing of the ligaments, so 2 quadricortical syndesmotic screws were placed. I then made an approximately 4cm incision over the medial malleolus. The fracture was exposed and hematoma was removed. Reduction of the medial malleolar fracture was obtained with a pointed reduction clamp. There was comminution anteriorly. I placed guidewires for 4.0 mm cannulated screws. I confirmed the position of the guidewires fluoroscopically. I then overdrilled the wires and placed 2 partially threaded 4.0 mm cannulated screws. I then removed the guidewires and obtained fluoroscopic images. I then turned my attention to the lateral ankle ligaments. 0 Vicryl was used to suture the lateral ankle ligaments back to the distal fibula. A suture was also placed through the plate to help secure the lateral ankle ligaments. This held the ankle in a more neutral position. At this point, we irrigated copiously and then closed in layers meticulously utilizing 3-0 Monocryl for the deep and subdermal layers and adriel for the skin. A sterile dressing was then applied followed by a splint with the ankle in a neutral position. The patient was then awakened from anesthesia and transferred to the recovery room in stable condition. There were no complications. All needle and sponge counts were correct at the end of the case. ATTESTATION: I attest I was present and scrubbed and performed the critical portions of the procedure myself. POSTOPERATIVE PLAN: The postop plan is for [id number] for an anticipated duration of 2 months. Follow-up will be in 2 weeks. At that time we will likely transition into a [id number] cast.
[2018-09-08] MEDS ORDERED: Ketorolac INJ* 30 MG/ML 1 ML VIAL ONE (18:06)
[2018-09-08] MEDS: traMADol TAB* 50 MG PO PRN (22:30)
[2018-09-08] MEDS: ceFAZolin 1 GM* X 3 DOSES POST-OP Q8H (AddVan) IVPB SCH ×2 (23:40)
[2018-09-09] MEDS: traMADol TAB* 50 MG PO PRN ×2 (04:31→11:19)
[2018-09-09] MEDS: Levothyroxine TAB* 50 MCG TAB PO SCH (05:26)
[2018-09-09] MEDS: NS 0.9% 1000 ML* 1,000 ML IV SCH (06:32)
[2018-09-09] MEDS: oxyCODONE TAB* 5 MG TAB PO PRN ×3 (08:08→21:25)
[2018-09-09] MEDS: Cholecalciferol TAB* 1000 UNITS PO SCH (08:09)
[2018-09-09] MEDS: ceFAZolin 1 GM* X 3 DOSES POST-OP Q8H (AddVan) IVPB SCH ×4 (08:10→16:15)
[2018-09-09] MEDS: Docusate CAP* 100 MG PO SCH ×2 (08:10→21:25)
--- NOTE | 2018-09-09 14:48 | PN ---
Subjective Date of Service: 09/09/18 Interval History: Ms. Gayle is feeling better today. She reports that the pain is slightly worse in her left foot - describes the pain as burning. This is well managed with oxycodone. She reports that tramadol was not effective. Appetite is somewhat decreased from normal. Has been up with PT, transferring to chair and commode. She is optimistic about her recovery. Denies CP, SOB, N/V. Family History: Unchanged from Admission Social History: Unchanged from Admission Past Medical History: Unchanged from Admission Objective Active Medications: Acetaminophen (Tylenol Tab*) 650 mg PO Q6H PRN FEVER/PAIN Albuterol/Ipratropium (Duoneb (Albuterol 2.5 Mg/Ipratropium 0.5 Mg)) 1 neb INH [id number] AWAKE PRN sob/wheexing Cholecalciferol (Vitamin D Tab*) 2,000 units PO DAILY BIANKA Docusate Sodium (Colace Cap*) 100 mg PO BID BIANKA Famotidine (Pepcid Iv*) 20 mg IVPB BID PRN DYSPEPSIA Cefazolin Sodium 1 gm/ Sodium (Chloride) 50 mls @ 200 mls/hr IVPB Q8H BIANKA Levothyroxine Sodium (Synthroid Tab*) 50 mcg PO DAILY@0600 BIANKA Melatonin (Melatonin) 3 mg PO BEDTIME PRN; Protocol SLEEP Ondansetron HCl (Zofran Inj*) 4 mg IV Q8H PRN NAUSEA/VOMITING Oxycodone HCl (Roxycodone Tab*) 5 mg PO Q4H PRN PAIN - SEVERE Tramadol HCl (Ultram*) 25 mg PO Q6H PRN PAIN Vital Signs - 8 hr 09/09/18 09/09/18 09/09/18 07:01 07:40 08:00 Temperature 98.7 F Pulse Rate 77 Respiratory 16 16 18 Rate Blood Pressure 167/74 (mmHg) O2 Sat by Pulse 97 Oximetry 09/09/18 09/09/18 09/09/18 08:08 11:10 11:19 Temperature 98.8 F Pulse Rate 75 Respiratory 18 16 18 Rate Blood Pressure 148/70 (mmHg) O2 Sat by Pulse 97 Oximetry Oxygen Devices in Use Now: None Appearance: Elderly female sitting in chair in NAD Eyes: No Scleral Icterus Ears/Nose/Mouth/Throat: Mucous Membranes Moist Neck: NL Appearance and Movements; NL JVP, Trachea Midline Respiratory: Symmetrical Chest Expansion and Respiratory Effort, Clear to Auscultation Cardiovascular: NL Sounds; No Murmurs; No JVD, RRR Abdominal: NL Sounds; No Tenderness; No Distention Extremities: No Edema Skin: No Rash or Ulcers, - - Surgical splint to LLE Neurological: Alert and Oriented x 3 Lines/Tubes/Other Access: Clean, Dry and Intact Peripheral IV Nutrition: Taking PO's Result Diagrams: 09/08/18 05:25 09/08/18 05:25 Assess/Plan/Problems-Billing Assessment: Ms. Boston is a 73yo with PMH of hypothyroidism and osteoporosis who presented to the ED after sustaining a mechanical fall and was found to have a left ankle fracture requiring surgical intervention. - Patient Problems (1) Trimalleolar fracture of left ankle Current Visit: Yes Code(s): S82.852A - DISPLACED TRIMALLEOLAR FRACTURE OF LEFT LOWER LEG, INIT Comment: - POD 1 left ankle ORIF - 2/2 mechanical fall - Management per ortho (2) GERD (gastroesophageal reflux disease) Current Visit: Yes Code(s): K21.9 - GASTRO-ESOPHAGEAL REFLUX DISEASE WITHOUT ESOPHAGITIS Comment: - Continue omeprazole (3) Hypothyroidism Current Visit: Yes Code(s): E03.9 - HYPOTHYROIDISM, UNSPECIFIED Comment: - Continue levothyroxine (4) DVT prophylaxis Current Visit: Yes Comment: - SCD to RLE; medications per ortho (5) Full code status Current Visit: Yes Code(s): Z78.9 - OTHER SPECIFIED HEALTH STATUS Status and Disposition: Observation. Will need RAF. Attending: Mary Gómez
[2018-09-09] MEDS: Heparin VIAL(*) 5000 UNITS/ML VIAL (FIVE THOUSAND) SUBCUT SCH (21:26)
[2018-09-10] MEDS: oxyCODONE TAB* 5 MG TAB PO PRN ×3 (02:43→21:41)
[2018-09-10] MEDS: Levothyroxine TAB* 50 MCG TAB PO SCH (05:58)
[2018-09-10] MEDS: Heparin VIAL(*) 5000 UNITS/ML VIAL (FIVE THOUSAND) SUBCUT SCH ×3 (05:58→21:40)
--- NOTE | 2018-09-10 07:58 | PN ---
Progress Note - Progress Note Date of Service: 09/10/18 SOAP: Subjective: POD #2 Left ankle ORIF. Doing ok, pain controlled. Denies CP/SOB, f/c, n/v. Has concerns about mobility and being able to get home as soon as possible. Objective: Vitals: Temp Pulse Resp BP Pulse Ox 99.8 F 72 19 147/69 94 09/10/18 03:35 09/10/18 03:35 09/10/18 05:59 09/10/18 03:35 09/10/18 03:35 Gen: A&Ox3, NAD at rest laying in bed LLE: Splint C/D/I. +f/e at MTPs, sensation intact, brisk cap refill Assessment: POD #2 Left ankle ORIF Plan: PT/OT NWB LLE with walker or knee scooter Likely needs RAF on d/c as she has several stairs in home Cont heparin for DVT ppx, can be switched to ASA 325mg daily on d/c
[2018-09-10] MEDS: Omeprazole CAP* 20 MG PO SCH (08:36)
[2018-09-10] MEDS: Cholecalciferol TAB* 1000 UNITS PO SCH (08:36)
[2018-09-10] MEDS: Docusate CAP* 100 MG PO SCH ×2 (08:36→21:41)
--- NOTE | 2018-09-10 12:14 | PN ---
Subjective Date of Service: 09/10/18 Interval History: Patient is feeling well today. Moderate pain in ankle. Patient denies other symptoms including F/C, N/V, abdominal pain, diarrhea, CP, SOB, dysuria, or other pain. Patient is passing flatus but has not had a BM for several days. Patient is very concerned about her insurance coverage for this hospitalization. Family History: Unchanged from Admission Social History: Unchanged from Admission Past Medical History: Unchanged from Admission Objective Active Medications: Acetaminophen (Tylenol Tab*) 650 mg PO Q6H PRN PRN Reason: FEVER/PAIN Albuterol/Ipratropium (Duoneb (Albuterol 2.5 Mg/Ipratropium 0.5 Mg)) 1 neb INH [id number] AWAKE PRN PRN Reason: sob/wheexing Cholecalciferol (Vitamin D Tab*) 2,000 units PO DAILY [facility] Last Admin: 09/10/18 08:36 Dose: 2,000 units Docusate Sodium (Colace Cap*) 100 mg PO BID [facility] Last Admin: 09/10/18 08:36 Dose: 100 mg Heparin Sodium (Porcine) (Heparin Vial(*)) 5,000 units SUBCUT Q8HR [facility] Last Admin: 09/10/18 05:58 Dose: 5,000 units Levothyroxine Sodium (Synthroid Tab*) 50 mcg PO DAILY@0600 [facility] Last Admin: 09/10/18 05:58 Dose: 50 mcg Melatonin (Melatonin) 3 mg PO BEDTIME PRN; Protocol PRN Reason: SLEEP Last Admin: 09/07/18 00:25 Dose: 3 mg Omeprazole (Prilosec Cap*) 20 mg PO DAILY@0730 [facility] Last Admin: 09/10/18 08:36 Dose: 20 mg Ondansetron HCl (Zofran Inj*) 4 mg IV Q8H PRN PRN Reason: NAUSEA/VOMITING Oxycodone HCl (Roxycodone Tab*) 5 mg PO Q4H PRN PRN Reason: PAIN - SEVERE Last Admin: 09/10/18 08:36 Dose: 5 mg Tramadol HCl (Ultram*) 25 mg PO Q6H PRN PRN Reason: PAIN Last Admin: 09/09/18 11:19 Dose: 25 mg Vital Signs - 8 hr 09/10/18 09/10/18 09/10/18 05:59 07:13 08:04 Temperature 99.3 F Pulse Rate 71 Respiratory 19 16 19 Rate Blood Pressure 165/70 (mmHg) O2 Sat by Pulse 95 Oximetry 09/10/18 09/10/18 08:36 10:34 Temperature Pulse Rate Respiratory 18 16 Rate Blood Pressure (mmHg) O2 Sat by Pulse Oximetry Oxygen Devices in Use Now: None Appearance: Patient is a 73yo female who appears stated age and is sitting in the bed in [facility]. Eyes: No Scleral Icterus, PERRLA Ears/Nose/Mouth/Throat: NL Teeth, Lips, Gums, Clear Oropharnyx, Mucous Membranes Moist Neck: NL Appearance and Movements; NL JVP, Trachea Midline Respiratory: Symmetrical Chest Expansion and Respiratory Effort, Clear to Auscultation Cardiovascular: NL Sounds; No Murmurs; No JVD, RRR, No Edema Abdominal: NL Sounds; No Tenderness; No Distention, No Hepatosplenomegaly Lymphatic: No Cervical Adenopathy Extremities: No Edema, No Clubbing, Cyanosis, - - Left ankle covered in Bulky dressing. Good pulses and capillary refill distally. Skin: No Nodules or Sclerosis Neurological: Alert and Oriented x 3, NL Sensation, NL Muscle Strength and Tone , - - CN II-XII intact. Result Diagrams: 09/08/18 05:25 09/08/18 05:25 Assess/Plan/Problems-Billing Assessment: Ms. Boston is a 73yo with PMH of hypothyroidism and osteoporosis who presented to the ED after sustaining a mechanical fall and was found to have a left ankle fracture requiring surgical intervention and is currently inpatient awaiting placement due to inability to function at home. - Patient Problems (1) Trimalleolar fracture of left ankle Current Visit: Yes Status: Acute Code(s): S82.852A - DISPLACED TRIMALLEOLAR FRACTURE OF LEFT LOWER LEG, INIT SNOMED Code(s): 654626582 Comment: - POD 2 left ankle ORIF - 2/2 mechanical fall - Management per ortho - Will need rehab. (2) GERD (gastroesophageal reflux disease) Current Visit: Yes Status: Acute Code(s): K21.9 - GASTRO-ESOPHAGEAL REFLUX DISEASE WITHOUT ESOPHAGITIS SNOMED Code(s): 054136140 Comment: - Continue omeprazole (3) Hypothyroidism Current Visit: Yes Status: Acute Code(s): E03.9 - HYPOTHYROIDISM, UNSPECIFIED SNOMED Code(s): 14531281 Comment: - Continue levothyroxine (4) DVT prophylaxis Current Visit: Yes Status: Acute Code(s): WIX2777 - SNOMED Code(s): 813366968 Comment: - SCD to RLE; Heparin SubQ dose and ASA at D/C. (5) Full code status Current Visit: Yes Status: Acute Code(s): Z78.9 - OTHER SPECIFIED HEALTH STATUS SNOMED Code(s): 059448011 Status and Disposition: Observation. Will need RAF.
[2018-09-11] MEDS: Levothyroxine TAB* 50 MCG TAB PO SCH (05:43)
[2018-09-11] MEDS: Heparin VIAL(*) 5000 UNITS/ML VIAL (FIVE THOUSAND) SUBCUT SCH ×3 (05:43→21:49)
[2018-09-11] MEDS: oxyCODONE TAB* 5 MG TAB PO PRN ×5 (05:46→21:49)
[2018-09-11] MEDS: Cholecalciferol TAB* 1000 UNITS PO SCH (07:45)
[2018-09-11] MEDS: Omeprazole CAP* 20 MG PO SCH (07:45)
[2018-09-11] MEDS: Docusate CAP* 100 MG PO SCH ×2 (07:45→20:13)
--- NOTE | 2018-09-11 09:11 | PN ---
Progress Note - Progress Note Date of Service: 09/11/18 SOAP: Subjective: POD #4 Left ankle ORIF, doing ok. States that splint is too heavy but not painful. Still struggling to use stairs. Awaiting bed at [facility]. Denies CP /SOB, f/c, n/v Objective: Vitals: Temp Pulse Resp BP Pulse Ox 99.4 F 63 18 144/60 96 / 04:20 09/11/18 04:20 09/11/18 07:45 09/11/18 04:20 09/11/18 04:20 Gen: A&Ox3, NAD at rest laying in bed LLE: Splint C/D/I. +f/e at MTPs, sensation intact, brisk cap refill Assessment: POD #4 Left ankle ORIF Plan: Cont PT/OT, NWB LLE F/u with Dr. Tello this week for possible splint change Lovenox for DVT ppx, can switch to ASA 325mg daily on d/c
--- NOTE | 2018-09-11 13:42 | PN ---
Subjective Date of Service: 09/11/18 Interval History: Patient is feeling well today. Patient states she has intermittent pain in her leg. Patient denies stabbing pain or severe pain. Patient is able to maintain NWM status when walking, but was not able to manage the 5 stairs she would need to get into her house. Patient denies F/C, N/V, abdominal pain, diarrhea, dysuria, chest pain, or shortness of breath. Family History: Unchanged from Admission Social History: Unchanged from Admission Past Medical History: Unchanged from Admission Objective Active Medications: Acetaminophen (Tylenol Tab*) 650 mg PO Q6H PRN PRN Reason: FEVER/PAIN Albuterol/Ipratropium (Duoneb (Albuterol 2.5 Mg/Ipratropium 0.5 Mg)) 1 neb INH [id number] AWAKE PRN PRN Reason: sob/wheexing Cholecalciferol (Vitamin D Tab*) 2,000 units PO DAILY [facility] Last Admin: 09/11/18 07:45 Dose: 2,000 units Docusate Sodium (Colace Cap*) 100 mg PO BID [facility] Last Admin: 09/11/18 07:45 Dose: 100 mg Heparin Sodium (Porcine) (Heparin Vial(*)) 5,000 units SUBCUT Q8HR [facility] Last Admin: 09/11/18 05:43 Dose: 5,000 units Levothyroxine Sodium (Synthroid Tab*) 50 mcg PO DAILY@0600 [facility] Last Admin: 09/11/18 05:43 Dose: 50 mcg Melatonin (Melatonin) 3 mg PO BEDTIME PRN; Protocol PRN Reason: SLEEP Last Admin: 09/07/18 00:25 Dose: 3 mg Omeprazole (Prilosec Cap*) 20 mg PO DAILY@0730 [facility] Last Admin: 09/11/18 07:45 Dose: 20 mg Ondansetron HCl (Zofran Inj*) 4 mg IV Q8H PRN PRN Reason: NAUSEA/VOMITING Oxycodone HCl (Roxycodone Tab*) 5 mg PO Q4H PRN PRN Reason: PAIN - SEVERE Last Admin: 09/11/18 10:11 Dose: 5 mg Tramadol HCl (Ultram*) 25 mg PO Q6H PRN PRN Reason: PAIN Last Admin: 09/09/18 11:19 Dose: 25 mg Vital Signs - 8 hr 12/16/18 12/16/18 12/16/18 05:46 07:30 07:45 Temperature 98.2 F Pulse Rate 71 Respiratory 18 16 18 Rate Blood Pressure 134/59 (mmHg) O2 Sat by Pulse 93 Oximetry 09/11/18 09/11/18 09/11/18 08:00 10:11 11:13 Temperature 98.4 F Pulse Rate 80 Respiratory 18 18 16 Rate Blood Pressure 131/71 (mmHg) O2 Sat by Pulse 97 Oximetry 09/11/18 13:07 Temperature Pulse Rate Respiratory 18 Rate Blood Pressure (mmHg) O2 Sat by Pulse Oximetry Oxygen Devices in Use Now: None Appearance: Patient is a 73yo female who appears stated age and is sitting in the bed in [facility]. Eyes: No Scleral Icterus, PERRLA, - - Left sided periorbital ecchymosis. Ears/Nose/Mouth/Throat: NL Teeth, Lips, Gums, Clear Oropharnyx, Mucous Membranes Moist Neck: NL Appearance and Movements; NL JVP, Trachea Midline Respiratory: Symmetrical Chest Expansion and Respiratory Effort, Clear to Auscultation Cardiovascular: NL Sounds; No Murmurs; No JVD, RRR, No Edema Abdominal: NL Sounds; No Tenderness; No Distention, No Hepatosplenomegaly Lymphatic: No Cervical Adenopathy Extremities: No Edema, No Clubbing, Cyanosis, - - Left ankle in cast with good distal pulses. Skin: No Nodules or Sclerosis Neurological: Alert and Oriented x 3, NL Sensation, NL Muscle Strength and Tone , - - CN II-XII intact. Result Diagrams: 09/08/18 05:25 09/08/18 05:25 Assess/Plan/Problems-Billing Assessment: Ms. Boston is a 73yo with PMH of hypothyroidism and osteoporosis who presented to the ED after sustaining a mechanical fall and was found to have a left ankle fracture requiring surgical intervention and is currently inpatient awaiting placement due to inability to function at home. - Patient Problems (1) Trimalleolar fracture of left ankle Current Visit: Yes Status: Acute Code(s): S82.852A - DISPLACED TRIMALLEOLAR FRACTURE OF LEFT LOWER LEG, INIT SNOMED Code(s): 547137178 Comment: - POD 3 left ankle ORIF - 2/2 mechanical fall - Management per ortho - Will likely need rehab. (2) GERD (gastroesophageal reflux disease) Current Visit: Yes Status: Acute Code(s): K21.9 - GASTRO-ESOPHAGEAL REFLUX DISEASE WITHOUT ESOPHAGITIS SNOMED Code(s): 345188622 Comment: - Continue omeprazole (3) Hypothyroidism Current Visit: Yes Status: Acute Code(s): E03.9 - HYPOTHYROIDISM, UNSPECIFIED SNOMED Code(s): 94715412 Comment: - Continue levothyroxine (4) DVT prophylaxis Current Visit: Yes Status: Acute Code(s): TJF3000 - SNOMED Code(s): 464333291 Comment: - SCD to RLE; Heparin SubQ dose and ASA at D/C. (5) Full code status Current Visit: Yes Status: Acute Code(s): Z78.9 - OTHER SPECIFIED HEALTH STATUS SNOMED Code(s): 322217606 Status and Disposition: Observation. Will need RAF.
[2018-09-12] MEDS: traMADol TAB* 50 MG PO PRN ×2 (05:43→16:17)
[2018-09-12] MEDS: Levothyroxine TAB* 50 MCG TAB PO SCH (05:44)
[2018-09-12] MEDS: Heparin VIAL(*) 5000 UNITS/ML VIAL (FIVE THOUSAND) SUBCUT SCH ×2 (05:44→16:16)
[2018-09-12] MEDS: Omeprazole CAP* 20 MG PO SCH (08:08)
[2018-09-12] MEDS: Docusate CAP* 100 MG PO SCH (08:08)
[2018-09-12] MEDS: Cholecalciferol TAB* 1000 UNITS PO SCH (08:08)
[2018-09-12 11:27] VITALS: BP 128/51
--- NOTE | 2018-09-12 15:52 | PN ---
Progress Note - Progress Note Date of Service: 09/12/18 SOAP: Subjective: []Patient was seen and examined OOB in chair, she feels well and will go to rehab today. Denies LLE pain, CP, SOB, dizziness, nausea. Objective: []General: NAD, well appearing LLE: Splint CDI, flexion and extension intact at MTPs, sensation intact and capillary refill less than two seconds distally. No skin breakdown at splint edges. Right calf supple, nontender, no erythema or edema Assessment: S/P Left ankle ORIF Plan: Cont PT/OT, NWB LLE F/u with Dr. Tello this week for possible splint change Lovenox for DVT ppx, can switch to ASA 325mg daily on d/c Vital Signs Temp 98.1 F 09/12/18 11:17 Pulse 73 09/12/18 11:17 Resp 16 09/12/18 11:17 BP 128/51 09/12/18 11:17 Pulse Ox 96 09/12/18 11:17 Intake & Output 09/11/18 09/12/18 09/12/18 18:59 06:59 18:59 Intake Total 900 120 Output Total 400 Balance 500 120 Intake: Oral 900 120 Output: Urine 400 Other: Estimated Void Medium Medium # Voids 1 Laboratory Last Values WBC 4.8 10^3/ul (3.5-10.8) 09/08/18 05:25 RBC 4.02 10^6/ul (4.00-5.40) 09/08/18 05:25 Hgb 12.3 g/dl (12.0-16.0) 09/08/18 05:25 Hct 36 % (35-47) 09/08/18 05:25 MCV 90 fL (80-97) 09/08/18 05:25 MCH 31 pg (27-31) 09/08/18 05:25 MCHC 34 g/dl (31-36) 09/08/18 05:25 RDW 13 % (10.5-15) 09/08/18 05:25 Plt Count 181 10^3/ul (150-450) 09/08/18 05:25 MPV 9.3 fL (7.4-10.4) 09/08/18 05:25 Neut % (Auto) 60.2 % 09/08/18 05:25 Lymph % (Auto) 29.2 % 09/08/18 05:25 [place] % (Auto) 8.6 % 09/08/18 05:25 Eos % (Auto) 1.7 % 09/08/18 05:25 Baso % (Auto) 0.3 % 09/08/18 05:25 Absolute Neuts (auto) 2.9 10^3/ul (1.5-7.7) 09/08/18 05:25 Absolute Lymphs (auto) 1.4 10^3/ul (1.0-4.8) 09/08/18 05:25 Absolute Monos (auto) 0.4 10^3/ul (0-0.8) 09/08/18 05:25 Absolute Eos (auto) 0.1 10^3/ul (0-0.6) 09/08/18 05:25 Absolute Basos (auto) 0 10^3/ul (0-0.2) 09/08/18 05:25 Absolute Nucleated RBC 0 10^3/ul 09/08/18 05:25 Nucleated RBC % 0.1 09/08/18 05:25 INR (Anticoag Therapy) 0.94 (0.77-1.02) 09/08/18 05:25 APTT 27.8 seconds (26.0-36.3) 09/06/18 18:06 Sodium 134 mmol/L (135-145) L 09/08/18 05:25 Potassium 3.9 mmol/L (3.5-5.0) 09/08/18 05:25 Chloride 103 mmol/L (101-111) 09/08/18 05:25 Carbon Dioxide 24 mmol/L (22-32) 09/08/18 05:25 Anion Gap 7 mmol/L (2-11) 09/08/18 05:25 BUN 11 mg/dL (6-24) 09/08/18 05:25 Creatinine 0.52 mg/dL (0.51-0.95) 09/08/18 05:25 Est GFR ( Amer) 140.3 (>60) 09/08/18 05:25 Est GFR (Non-Af Amer) 115.9 (>60) 09/08/18 05:25 BUN/Creatinine Ratio 21.2 (8-20) H 09/08/18 05:25 Glucose 118 mg/dL (70-100) H 09/08/18 05:25 Lactic Acid 1.0 mmol/L (0.5-2.0) 09/06/18 18:06 Calcium 8.9 mg/dL (8.6-10.3) 09/08/18 05:25 Total Bilirubin 0.30 mg/dL (0.2-1.0) 09/07/18 05:38 Direct Bilirubin 0.00 mg/dL (0.03-0.18) L 09/07/18 05:38 Indirect Bilirubin [employer] 09/07/18 05:38 AST 28 U/L (13-39) 09/07/18 05:38 ALT 39 U/L (7-52) 09/07/18 05:38 Alkaline Phosphatase 62 U/L (34-104) 09/07/18 05:38 Troponin I 0.00 ng/mL (<0.04) 09/06/18 18:06 Total Protein 6.0 g/dL (6.4-8.9) L 09/07/18 05:38 Albumin 3.5 g/dL (3.2-5.2) 09/07/18 05:38 Globulin 2.5 g/dL (2-4) 09/07/18 05:38 Albumin/Globulin Ratio 1.4 (1-3) 09/07/18 05:38 Triglycerides 93 mg/dL 09/07/18 05:38 Cholesterol 207 mg/dL 09/07/18 05:38 LDL Cholesterol 125 mg/dL 09/07/18 05:38 HDL Cholesterol 63.3 mg/dL 09/07/18 05:38 TSH 0.70 mcIU/mL (0.34-5.60) 09/07/18 06:46 Urine Color Yellow 09/06/18 21:55 Urine Appearance Cloudy 09/06/18 21:55 Urine pH 8.0 (5-9) 09/06/18 21:55 Ur Specific [place] 1.014 (1.010-1.030) 09/06/18 21:55 Urine Protein Negative (Negative) 09/06/18 21:55 Urine Ketones Negative (Negative) 09/06/18 21:55 Urine Blood Negative (Negative) 09/06/18 21:55 Urine Nitrate Negative (Negative) 09/06/18 21:55 Urine Bilirubin Negative (Negative) 09/06/18 21:55 Urine Urobilinogen Negative (Negative) 09/06/18 21:55 Ur Leukocyte Esterase Negative (Negative) 09/06/18 21:55 Urine Glucose Negative (Negative) 09/06/18 21:55 Blood Type A Positive 09/06/18 18:06 Antibody Screen Negative 09/06/18 18:06
--- NOTE | 2018-09-12 22:14 | DS ---
CC: Dr. Seb Grey * DISCHARGE SUMMARY: DATE OF ADMISSION: 09/06/18 DATE OF DISCHARGE: 09/12/18 PRIMARY CARE PROVIDER: Dr. Seb Grey. ATTENDING PHYSICIAN WHILE IN THE HOSPITAL: Dr. Isabel Kahn.* (DICTATED BY SONAL CHUN) PRIMARY DISCHARGE DIAGNOSIS: Trimalleolar fracture of the left ankle, status post ORIF. SECONDARY DISCHARGE DIAGNOSES: 1. Hypothyroidism. 2. Endometriosis. 3. Vitamin D deficiency. STUDIES DONE WHILE IN THE HOSPITAL: Ankle x-ray from 09/06/18, read as trimalleolar fracture dislocation. Chest x-ray from 09/06/18, read as normal single AP view of the chest. Repeat ankle x-ray from 09/06/18, status post reduction, trimalleolar fracture with markedly improved alignment compared to the previous exam documenting posterior talocrural dislocation and talocrural joints not located. There is lateral joint space widening. Cast limits image quality. Lower extremity CT from 09/06/18 read as interval reduction of ankle dislocation of trimalleolar fractures, mildly symmetric widening of ankle mortise laterally. Electrocardiogram from 09/06/18 shows normal sinus rhythm, rate of 78, QTc of 447, normal axis, no ST-segment abnormalities, no hypertrophy or enlargements, poor quality study, no other abnormalities. Repeat from 09/07/18 shows improved quality study. No other significant changes , rate 66, and QTc 435. MEDICATIONS AT DISCHARGE: 1. Probiotic 1 cap p.o. daily. 2. Levothyroxine 50 mcg p.o. daily. 3. Vitamin D 2000 units p.o. daily. 4. Lakisha's wort 350 mg p.o. daily. 5. Tylenol 650 mg p.o. q.6 hours as needed. 6. Docusate 100 mg p.o. b.i.d. 7. Melatonin 3 mg p.o. at bedtime as needed. 8. Oxycodone 5 mg p.o. q.6 hours as needed. 9. Tramadol 25 mg p.o. q.6 hours as needed. 10. Aspirin 325 mg p.o. daily, may be divided into 4 doses per the patient's reference. HOSPITAL COURSE: This is a brief summary of the patient's presentation. For more details, please see history and physical from Leonor Martinez MD, on 08/27/18. In brief, the patient is a 73-year-old female with past medical history significant for above, who was in her usual state of health. When she was walking her dog, her dog pulled her and she twisted her ankle with no prodromal symptoms. She was found to have extreme pain. She came into the hospital, found to have trimalleolar fracture as above, which was reduced in the emergency department. The patient had lab work, which was unremarkable except for slightly elevated glucose and slightly elevated liver function tests. The patient had negative urinalysis. The patient had no anemia. The patient had her foot reduced in cast and was admitted to the hospital. The patient then underwent surgery on 09/08/18 with an uncomplicated course. The patient after her surgery was able to fully gain function, but was not able for a significant period of time to handle the stairs that would be needed to get back into her house. The patient was considered for subacute rehab, but in the end, the patient did not need subacute rehab as she was able to recover to a sufficient degree to go home. The patient was stable enough to discharge on 09/12/18 after teaching on the durable medical equipment from physical therapy. PHYSICAL EXAM ON DAY OF DISCHARGE: General: The patient is a 73-year-old female, who appears younger than her stated age, sitting comfortably in bed in no acute distress. Vital Signs: Temperature 98.1, pulse rate 73, respiratory rate 16, oxygen saturation 96% on room air, blood pressure 121/51. HEENT: Head normocephalic, atraumatic. Sclerae anicteric. No conjunctival injection. Nasal mucosa moist. Oral mucosa moist. No pharyngeal erythema, discharge, or exudate. Neck: Supple, nontender. No lymphadenopathy. No carotid bruits auscultated. No JVD. Cardiac: Regular rate and rhythm. No clicks, murmurs, gallops, or rubs. Pulses 2+ in bilateral dorsalis pedis and posterior tibialis, and radial areas. Respiratory: Clear to auscultation bilaterally. No wheezes, rales or rhonchi. Good air exchange bilaterally. Abdomen: Soft, nontender, nondistended. Bowel sounds present, normoactive in all 4 quadrants. No hepatospleno-megaly. No abdominal bruits auscultated. No hepatojugular reflux. Genitourinary: No suprapubic or CVA tenderness. Skin: Clean, dry, intact. No rash except for left lower extremity covered in a large cast with no power, good pulses and sensation distally. Neuro: Cranial nerves II through XII grossly intact. No focal deficits. Alert and oriented x3. Psychiatric: Pleasant and cooperative. DISCHARGE PLAN: The patient will be discharged to home. The patient will have pain control as above. The patient should follow up with her orthopedist within 2 weeks. The patient will be on aspirin for DVT prophylaxis. The patient is concerned she would be unable to tolerate the aspirin due to GI side effects. If this is the case, the patient should be continued on heparin as she was in the hospital. Prescription will be provided for this. She should call her primary care doctor if this is needed. The patient should return to the hospital for alarming symptoms such as recurrent falls, severe pain in her leg, symptoms of decreased blood flow to the lower extremity, chest pain, or shortness of breath. The patient should have a regular unrestricted diet and engage in activity as tolerated, maintaining a nonweightbearing status on the left foot. The patient will have visiting nurse services and she will follow up with her primary care provider within 1 week. TIME SPENT: Approximately 60 minutes were spent on discharge of the patient, 30 of which spent [id number] with the patient obtaining history and physical and discussing the treatment plan. SONAL CHUN [id number]/MIKAL #: [id number] AIYANA
== END 2018-09-12 16:40 | disposition home or self-care (01) | DRG 494 ==
LOC: ED 16:45 → SSU 19:29 → OBSVTOIN 09-09 18:00 → SSU 09-10 11:41
PROVIDERS: ADMIT Internal Medicine; ATTEND Internal Medicine
PROC: 0QSH04Z Reposition Left Tibia with Internal Fixation Device, Open Approach (ICD-10-PCS; principal; 2018-09-06)
PROC: 0QSHXZZ Reposition Left Tibia, External Approach (ICD-10-PCS; 2018-09-06)
DX: S82.852A Displaced trimalleolar fracture of left lower leg, initial encounter for closed fracture (principal); K21.9 Gastro-esophageal reflux disease without esophagitis; K44.9 Diaphragmatic hernia without obstruction or gangrene; M19.072 Primary osteoarthritis, left ankle and foot; M19.071 Primary osteoarthritis, right ankle and foot; M81.0 Age-related osteoporosis without current pathological fracture; E03.9 Hypothyroidism, unspecified; M85.88 Other specified disorders of bone density and structure, other site; F32.9 Major depressive disorder, single episode, unspecified; N80.9 Endometriosis, unspecified; R94.5 Abnormal results of liver function studies; R58 Hemorrhage, not elsewhere classified; Z91.048 Other nonmedicinal substance allergy status; Z90.710 Acquired absence of both cervix and uterus; Z98.49 Cataract extraction status, unspecified eye; Z72.89 Other problems related to lifestyle; W01.0XXA Fall on same level from slipping, tripping and stumbling without subsequent striking against object, initial encounter; Y92.9 Unspecified place or not applicable; Y93.K1 Activity, walking an animal; Z90.722 Acquired absence of ovaries, bilateral
CPT/HCPCS: 36415; 71045; 76000; 80048; 80053; 80061; 80076; 81003; 83605; 84443; 84484; 85025; 85610; 85730; 86850; 86900; 86901; 93005; 99285; A9270-GY; C1713; C1776; G8978-GP-CL; G8979-GP-CH; G8987-GO-CK; G8988-GO-CI; J0360; J0690; J1100; J1644; J1885; J2250; J2270; J2405; J2704; J3010